=== PATIENT | female | born 2000 | race Hispanic/Latino ===

== ENCOUNTER 2022-11-01 18:15 | Emergency (ER) | payer OTHER ==
[~2022-11-01] VITALS: Ht 152.4 cm; Wt 51.1 kg
[2022-11-01] MEDS ORDERED: DICL20GE TP (21:48)
[2022-11-01 22:18] VITALS: BP 106/65
== END 2022-11-01 22:20 | disposition home or self-care (01) ==
LOC: M ED 18:15
DX: M77.8 Other enthesopathies, not elsewhere classified (principal)